=== PATIENT | male | born 1940 | race Caucasian/White ===

== ENCOUNTER 2017-05-21 07:48 | Outpatient (CLI) | payer MEDICARE ==
[~2017-05-21] VITALS: Ht 167.6 cm; Wt 90.9 kg
--- NOTE | ~2017-05-21 | OP ---
PATIENT NAME: GLADIS FLORES MEDICAL RECORD: [id number] :40 LOCATION:D.CAT ADMISSION DATE: SURGEON: VALORIE RGAY MD DATE OF OPERATION: 05/21/2017 DATE OF SERVICE: 05/21/2017 PROCEDURES: 1. PTCA stent of left main/LAD. 2. Intravascular ultrasound of left main and LAD. 3. Left heart catheterization. 4. Selective coronary angiography. 5. Left ventriculogram. INDICATION: Angina and coronary artery disease. PROCEDURE IN DETAIL: After informed consent was obtained and after detailed explanation of risks, benefits as well as alternative therapies, the patient elected to proceed with angiogram and angioplasty. The right femoral area had a preexisting sheath from aortofemoral runoff. All catheters exchanged through this sheath. FINDINGS: Left ventriculogram was performed in standard 30-degree FLETCHER view, reveals global hypokinesis throughout all segments. Overall ejection fraction 35%. SELECTIVE CORONARY ANGIOGRAPHY: 1. Left main has a greater than 80% stenosis confirmed by intravascular ultrasound. 2. Left anterior descending in the proximal aspect has greater than 80% stenosis confirmed by intravascular ultrasound, otherwise with moderate irregularities. 3. Left circumflex is moderate diffusely diseased, but no discrete flow-limiting stenosis. 4. Right coronary artery is totally occluded at the ostium. Distal right coronary artery fills via left to right collaterals and appears to be diffusely diseased and small. PTCA stent of the left main and LAD: The stent used covering both the left main and LAD was a 3.0 x 38 mm Oynx. Result was 0% residual stenosis. OVERALL IMPRESSION: Successful percutaneous transluminal coronary angioplasty stent of the left main and LAD, both going from 80% initial stenosis to 0% residual. TRANSINT:[id number] Voice Confirmation ID: [id number] DOCUMENT ID: [id number] OPERATIVE REPORT [id number] GLADIS FLORES VALORIE GRAY MD at 1025 CC: [id number] DICTATION DATE: 05/21/17 1044 [employer] PRICING CONSULTANT: 05/21/17 1341 DEP CLI 05/21/17 [place] [address]
--- NOTE | ~2017-05-21 | HP ---
PATIENT: GLADIS FLORES MEDICAL RECORD: [id number] ACCOUNT: [id number] LOCATION:JENSEN : 40 ADMISSION DATE: 05/21/17 HISTORY AND PHYSICAL EXAMINATION DIAGNOSES: 1. Angina. 2. Claudication. 3. Coronary artery disease. 4. Peripheral vascular disease. 5. Diabetes. 6. Hyperlipidemia. HISTORY OF PRESENT ILLNESS: This is a gentleman who presents with anginal symptomatology as well as claudication symptomatology. He underwent nuclear stress testing revealing significant reversible ischemia. He does have a past history of coronary artery disease, peripheral stenting as well. PHYSICAL EXAMINATION: GENERAL APPEARANCE: Well-nourished, well-developed, appears stated age. Level of distress, comfortable. PSYCHIATRIC: Mental status, alert, normal affect. Orientation, oriented to time, place and person. EYES: Lids and conjunctiva, noninjected. No discharge, no pallor. ENT: Lips, teeth, gums, normal dentition. Oropharynx, no cyanosis, no pallor. NECK: Carotid arteries, bilateral normal upstroke, no bruits, no thrills. JUGULAR VEINS: No jugular venous pressure or distention. CERVICAL LYMPH NODES: Nontender, nonenlarged. THYROID: Not enlarged. Nontender. No nodules. LUNGS: Respiratory effort, unlabored. CHEST: Normal curvature. No thoracic deformity. No chest wall tenderness. Percussion, resonant. Auscultation, clear. No wheezes, no rales, no rhonchi. CARDIOVASCULAR: Precordial exam, nondisplaced. No heaves or pericardial thrills. Rate and rhythm, regular. Heart sounds, normal S1, normal S2. No S3, no gallop, no rub. Systolic murmur, not heard. Diastolic murmur, not heard. EXTREMITIES: No cyanosis, no edema. Peripheral pulses, full and equal in all extremities, except as noted. No bruits appreciated. ABDOMEN: Soft, nondistended. Normal aorta. No bruit. Nontender. No masses. Liver, nontender, no hepatomegaly. Spleen, nontender, no splenomegaly. MUSCULOSKELETAL: No joint tenderness. No joint swelling. No erythema. NEUROLOGICAL: Normal gait, normal strength, normal tone. SKIN: Warm and dry. REVIEW OF SYSTEMS: The patient reports easy bruising but reports no swollen glands. The patient reports no fever, no night sweats, no significant weight gain, no significant weight loss. No significant exercise tolerance. The patient reports no dry eyes, no irritation, no vision change. Patient reports no difficulty hearing and no ear pain. Patient reports no frequent nose bleeds or nose and sinus problems. Patient reports on arm pain on exertion. No shortness of breath while lying down. No history of heart murmur. Patient reports no cough, no wheezing or coughing up blood. Patient reports no abdominal pain, no vomiting. Normal appetite. No diarrhea and not vomiting blood. No nausea and no constipation. Patient reports no incontinence. No difficulty urinating. No hematuria. No increased frequency. Patient reports no muscle aches. No weakness, no arthralgias, no back pain. No swelling of the HISTORY AND PHYSICAL [id number] SANDRAGLADIS Daija extremities. Patient reports no abnormal mole, no jaundice, no rashes. Reports no loss of consciousness. No weakness and no numbness. No seizures, dizziness, or headaches. The patient reports no depression, no sleep disturbance, feeling safe in a relationship and no alcohol abuse. Patient reports on fatigue. Reports no runny nose or sinus pressure. No itching, no hives, and no frequent sneezing. OVERALL IMPRESSION: Anginal symptomatology, abnormal nuclear stress test, claudication symptomatology in a patient with a past history of coronary artery disease and peripheral vascular disease. We will proceed with coronary angiography as well as aortofemoral runoff. Further care depends upon the findings of the angiography. TRANSINT:[id number] Voice Confirmation ID: [id number] DOCUMENT ID: [id number] VALORIE GRAY MD at 1025 CC: [id number] DICTATION DATE: 05/21/17957 JEWEL HOLE ROUGH OPENER: 05/21/17 1026 DEP CLI 05/21/17 [place] [id number]
--- NOTE | ~2017-05-21 | HEMODYNAMI ---
PATIENT:GLADIS FLORES MEDICAL RECORD: [id number] : 40 LOCATION:DAURY ADMISSION DATE: 05/21/17 Generatedon:05/21/201710:42 Patient name: GLADIS FLORES Patient #: [id number] SSN: : 1940 Date of study: 05/21/2017 Page: Of Hemodynamic Procedure Report Patient Data Patient Demographics Procedure consent was obtained First Name: GLADIS Gender: Male Last Name: SANDRA : 1940 [facility] Initial: G Age: 76 year(s) Patient #: [id number] Race: Unknown Additional ID: [id number] Contact details [address]: [address] [place] [address] State: [place] City: [place] Zip code: [address] Past Medical History Allergies: No known allergies Admission Admission Data Admission Date: 05/21/2017 Admission Time: 7:48 Lab Results Lab Result Date: 05/21/2017 Lab Result Time: 0:00 Biochemistry Name Units Result Min Max BUN mg/dl 27 --(----)-* 7 18 Creatinine mg/dl 1.7 --(----)-* 0.6 1.3 CBC Name Units Result Min Max Hemoglobin g/dl 14.6 --(-*--)-- 13.5 17.5 Procedure Procedure Types Cath Procedure Diagnostic Procedure [facility] w/Coronaries FFR/IVUS Intra-Coronary IVUS Initial PCI Procedure Coronary Stent Coronary Stent Initial Miscellaneous Procedures Moderate Sedation up to 30 minutes Peripheral Cath Diagnostic Procedure Cath Peripheral Geltl-Ttcsulz-Zyg-Off Procedure Description Procedure Date Procedure Date: 05/21/2017 Procedure Start Time: 10:17 Procedure End Time: 10:42 Procedure Staff Name Function Gordon Willard MD Performing Physician Gege Gonzalez RT Monitor Mathew Mcghee RT Scrub Rylan Constantino RN Nurse Foreign Albarran RN Dyno Technician Procedure Data Cath Procedure Fluoroscopy Diagnostic fluoroscopy Total fluoroscopy Time: 4.8 time: 4.8 min min Diagnostic fluoroscopy Total fluoroscopy dose: dose: 1046 mGy 1046 mGy Contrast Material Contrast Material Type Amount (ml) Isovue 300 166 Entry Location Entry Primary Successful Side Size Upsize Upsize Entry Closure Succes sful Closure Location (Fr) 1 (Fr) 2 (Fr) Remarks Device Remarks Femoral Right 5 Fr Exoseal artery Estimated blood loss: 10 ml Diagnostic catheters Device Type Used For End Catheter Placement MULTIPACK Pigtail 5 Fr Procedure catheter MULTIPACK JL 4.0 5Fr Procedure catheter MULTIPACK 3DRC 5Fr Procedure catheter Procedure Complications No complications Procedure Medications Medication Administration Route Dosage 0.9% NaCl I.V. 100 ml/hr Oxygen NC 2 l/min Heparin Flush Bag added to field 2 bags (1000units/500ml NS) Lidocaine 2% added to field 20 Versed I.V. 1 mg Fentanyl I.V. 50 mcg Versed I.V. 0.5 mg Fentanyl I.V. 25 mcg Heparin Bolus I.V. 4000 units Versed I.V. 0.5 mg Fentanyl I.V. 25 mcg Hemodynamics Rest HGB: 14.6 (g/dl) Heart Rate: 83 (bpm) Snapshots Pre Cath Intra NCS Post Cath Vital Signs Time Heart Resp SPO2 etCO2 NIBP (mmHg) Rhythm Pain Sedation Rate (ipm) (%) (mmHg) Status Level (bpm) 10:09:16 83 16 99 41 158/74(119) NSR 0 (11) 10(A) , No pain 10:14:03 83 16 98 41.8 154/71(107) NSR 0 (11) 10(A) , No pain 10:18:45 84 15 98 0 145/74(98) NSR 0 (11) 10(A) , No pain 10:23:24 90 14 96 39.5 128/65(103) NSR 0 (11) 9(A) , No pain 10:28:02 88 14 97 7.6 132/65(108) NSR 0 (11) 9(A) , No pain 10:32:43 84 15 96 40.2 105/62(84) NSR 0 (11) 9(A) , No pain 10:37:17 94 13 97 11.4 125/73(120) NSR 0 (11) 9(A) , No pain 10:41:52 89 13 96 9.1 121/70(94) NSR 0 (11) 9(A) , No pain Medications Time Medication Route Dose Verified Delivered Reason Notes Effectiveness by by 10:07:32 0.9% NaCl I.V. 100 Rylan Rylan Per physician ml/hr Dougie Constantino RN RN 10:07:42 Oxygen NC 2 Rylan Rylan Per physician l/min Dougie Constantino RN RN 10:07:52 Heparin Flush added 2 Rylan Rylan used for Bag to bags Dougie Constantino procedure (1000units/500ml field RN RN NS) 10:08:05 Lidocaine 2% added 20ml Rylan Rylan for local to vial Lorkatty Constantino anesthetic field RN RN 10:12:04 Versed I.V. 1 mg Rylan Rylan for sedation Dougie Constantino RN RN 10:12:26 Fentanyl I.V. 50 Rylan Rylan for sedation mcg Dougie Constantino RN RN 10:18:04 Versed I.V. 0.5 Rylan Rylan for sedation mg Dougie Constantino RN RN 10:18:12 Fentanyl I.V. 25 Rylan Rylan for sedation mcg Dougie Constantino RN RN 10:29:48 Heparin Bolus I.V. 4000 Rylan Rylan for units Dougie Constantino anticoagulation RN RN 10:30:57 Versed I.V. 0.5 Rylan Rylan for sedation mg Dougie Constantino RN RN 10:31:03 Fentanyl I.V. 25 Rylan Rylan for sedation mcg Dougie Constantino RN restoration technician Log Time Note 9:43:02 Foreign Albarran RN sent for patient. Start room use. 9:43:03 Time tracking: Regular hours 9:43:08 Plan of Care:Hemodynamics will remain stable., Cardiac rhythm will remain stable., Comfort level will be maintained., Respiratory function will remain adequate., Patient/ family verbilizes understanding of procedure., Procedure tolerated without complication., Recovers from procedure without complications.. 9:54:28 Lab Result : BUN 27 mg/dl 9:54:28 Lab Result : Creatinine 1.7 mg/dl 9:54:28 Lab Result : Hemoglobin 14.6 g/dl 9:58:01 Patient received from Pre/Post Procedure Room to [facility] 1 Alert and oriented. Tansferred to table in Supine position. 9:58:02 Warm blankets applied, and boone hugger turned on for patient comfort. 9:58:03 Correct patient and procedure confirmed by team. 9:58:04 Signed procedure consent form obtained from patient. 9:58:05 ECG and BP/O2 sat monitors applied to patient. 10:07:32 0.9% NaCl 100 ml/hr I.V. was administered by Rylan Constantino RN; Per physician; 10:07:42 Oxygen 2 l/min NC was administered by Rylan Constantino RN; Per physician; 10:07:52 Heparin Flush Bag (1000units/500ml NS) 2 bags added to field was administered by Rylan Constantino RN; used for procedure; 10:08:05 Lidocaine 2% 20ml vial added to field was administered by Rylan Constantino RN; for local anesthetic; 10:08:16 Vital chart was started 10:09:57 Baseline sample Acquired. 10:10:02 Rhythm: sinus rhythm 10:10:03 Full Disclosure recording started 10:10:07 H&P Date Dictated: 05/21/2017 Within 30 days and on chart., H&P Addendum completed by physician on day of procedure. (MUST COMPLETE FOR ALL OUTPATIENTS). 10:10:07 Pre-procedure instructions explained to patient. 10:10:09 Pre-op teaching completed and patient verbalized understanding. 10:10:11 Family in patients room. 10:10:13 Patient NPO since Midnight. 10:10:20 Patient allergic to No known allergies 10:10:22 Is the patient allergic to Iodine/contrast media? No. 10:10:25 Is patient on blood thinner?No 10:10:27 ACC The patient was administered the following blood thiners within the last 24 hours: ACCPlavix 10:10:31 Patient diabetic? Yes. 10:10:32 If diabetic: On Metformin? No 10:10:37 Previous problem with sedation/anesthesia? No ? 10:10:38 Snore? Yes 10:10:39 Sleep apnea? No 10:10:40 Deviated septum? No 10:10:41 Opens mouth fully? Yes 10:10:42 Sticks out tongue? Yes 10:10:44 Airway obstruction? No ? 10:10:49 Dentures? Yes IN TIGHT 10:10:53 Pre procedure: right dorsailis pedis pulse 2+ Normal; easily identifiable; not easily obliterated 10:10:58 Patient pain scale 0/10 ?. 10:11:11 IV patent on arrival in left forearm with 0.9% NaCl at O. 10:11:14 Lab results completed and on chart. 10:11:17 Bilateral groins area was prepped with chlora-prep and draped in sterile fashion 10:11:18 Alarms reviewed by R. N. 10:11:18 Sharps counted by scrub and verified by R.N. 10:11:19 --------ALL STOP TIME OUT------ 10:11:20 Final Timeout: patient, procedure, and site verified with staff and physician. All members of the team are in agreement. 10:11:21 Bilateral groins site verified by team. 10:11:25 Physical assessment completed. ASA score P 2 - A patient with mild systemic disease as per Gordon Willard MD. 10:11:28 Sedation plan: IV Moderate Sedation Medication:Versed, Fentanyl 10:12:04 Versed 1 mg I.V. was administered by Rylan Constantino RN; for sedation; 10:12:26 Fentanyl 50 mcg I.V. was administered by Rylan Constantino RN; for sedation; 10:13:17 Procedure type changed to Cath procedure, Diagnostic procedure, LHC, LHC w/Coronaries, FFR/IVUS, Intra-Coronary IVUS Initial, PCI procedure, Coronary Stent, Coronary Stent Initial, Miscellaneous Procedures, Moderate Sedation up to 30 minutes, Peripheral Cath Diagnostic Procedure, Cath Peripheral, Mmhse-Ebmzlhg-Rmn-Off 10:13:23 Use device set Femoral Dx 10:13:24 ACIST Syringe (36668) opened to sterile field. 10:13:24 Bag Decanter (2002) opened to sterile field. 10:13:26 ACIST Hand Control (84130) opened to sterile field. 10:13:26 ACIST Manifold (78219) opened to sterile field. 10:13:27 Tegaderm 4 x 4 (1626W) opened to sterile field. 10:13:29 PERCUTANEOUS ENTRY 19GA needle opened to sterile field. 10:13:31 Medline Cath Pack (LUUV84823) opened to sterile field. 10:13:33 SHEATH 5FR Cyril (PZN696) opened to sterile field. 10:13:36 DIAGNOSTIC WIRE .035 260cm J wire (322309) opened to sterile field. 10:13:37 DIAGNOSTIC Multipack 5Fr catheter set (OY7294) opened to sterile field. 10:15:27 Zero performed for pressure channel P1 10:15:30 Zero performed for pressure channel P1 10:15:41 Zero performed for pressure channel P1 10:17:01 Procedure started. 10:17:08 Local anesthetic to right femoral artery with Lidocaine 2% by Gordon Willard MD.INITIAL ACCESS ONLY 10:18:04 Versed 0.5 mg I.V. was administered by Rylan Constantino RN; for sedation; 10:18:12 Fentanyl 25 mcg I.V. was administered by Rylan Constantino RN; for sedation; 10:19:00 A 5 Fr sheath was inserted into the Right Femoral artery 10:19:42 A MULTIPACK Pigtail 5 Fr catheter was advanced over the wire and used for Procedure. 10:19:46 LV gram done using FLETCHER 10:19:49 Injector settings: Ml/sec: 10, Volume: 20, 10:20:50 EF : 35 % 10:21:46 Left leg runoff performed. 10:21:54 Right leg runoff performed. 10:22:28 Catheter removed. 10:23:04 A MULTIPACK JL 4.0 5Fr catheter was advanced over the wire and used for Procedure. 10:23:44 LCA angiography performed. 10:24:33 Catheter removed. 10:24:47 A MULTIPACK 3DRC 5Fr catheter was advanced over the wire and used for Procedure. 10:25:42 Catheter removed. 10:25:54 RIGHT CORONARY TOTAL OCCLUSION 10:27:02 INFLATOR Merit BasixCompak (AT5196) opened to sterile field. 10:27:07 SHEATH 6FR Cyril (LUI562) opened to sterile field. 10:27:48 [place] IVUS Catheter (53344W) opened to sterile field. 10:28:25 CHOICE PT Extra Support 182cm wire ([id number]) opened to sterile field. 10:29:20 6 Fr XBLAD SH 3.5 guide catheter was inserted over the wire 10:29:48 Heparin Bolus 4000 units I.V. was administered by Rylan Constantino RN; for anticoagulation; 10:29:52 GUIDE 6FR XBLAD 3.5 SH catheter (51358645) opened to sterile field. 10:30:07 CHOICE PT wire advanced. 10:30:11 Wire advanced across lesion. 10:30:31 GUIDE 6FR XBLAD 4.0 catheter ([id number]) opened to sterile field. 10:30:38 IVUS catheter advanced over wire. 10:30:57 Versed 0.5 mg I.V. was administered by Rylan Constantino RN; for sedation; 10:31:03 Fentanyl 25 mcg I.V. was administered by Rylan Constantino RN; for sedation; 10:32:04 IVUS pass to LAD lesion performed. 10:32:19 IVUS catheter removed over wire. 10:35:00 Inflation Number: 1 A SARA RX 3.0 x 38 stent ([id number]) was prepped and advanced across the Prox LAD. The stent was deployed at 17 VAUGHN for 0:10 (min:sec). 10:35:19 Stent catheter was removed intact over wire. 10:35:20 Wire removed. 10:35:21 Guide catheter removed. 10:35:31 EXOSEAL 6Fr (EX600) opened to sterile field. 10:35:41 Quick Combo opened to sterile field. 10:35:54 Sheath removed intact; hemostasis achieved with Exoseal to the Right Femoral artery. 10:35:57 Procedure ended.(Physican Out) 10:36:38 Fluoroscopy time 04.80 minutes. 10:36:45 Fluoroscopy dose: 1046 mGy 10:36:45 Flurop Dose total: 1046 10:36:49 Contrast amount:Isovue 300 166ml. 10:36:51 Sharps counted by scrub and verified by R.N. 10:36:52 Insertion/operative site no bleeding no hematoma. 10:36:54 Post-op/insertion site Right Femoral artery dressed using a 4 x 4 and Tegaderm. 10:36:59 Post right femoral artery:stable, soft, clean and dry 10:40:18 Post procedure: right dorsailis pedis pulse 2+ Normal; easily identifiable; not easily obliterated. 10:40:20 Post-procedure physical assessment completed. ASA score P 2 - A patient with mild systemic disease as per Gordon Willard MD. 10:40:23 Post procedure rhythm: unchanged. 10:40:25 Estimated blood loss: 10 ml 10:40:28 Post procedure instruction explained to patient.Patient verbalizes understanding. 10:40:31 Patient needs reinforcement of post procedure teaching. 10:42:14 Procedure and supply charges have been captured, reviewed, submitted and are correct. 10:42:18 Procedure Complication : No complications 10:42:20 Vital chart was stopped 10:42:20 See physician's report for complete and final results. 10:42:23 Report given to Pre/Post Procedure Room. 10:42:27 Patient transfered to Pre/Post Procedure Room with Bed. 10:42:29 Procedure ended. 10:42:29 Full Disclosure recording stopped 10:42:34 End room use (Document Last) Intervention Summary Intervention Notes Time ActionType Lesion and Equipment Used Action# Pressure Duration Attributes 10:35:[address] Place stent Prox LAD SARA RX 3.0 x 1 17 00:10 38 stent ([id number]) Device Usage Item Name Manufacture Quantity Catalog Number Hospital Part Current M inimal Lot# / Charge Number Stock Stock Serial# Code ACIST Syringe Acist 1 73952 797082 155358 305998 2 0 (15887) Medical Systems Inc Bag Decanter Microtek 1 2002S 191311 60499 170763 5 (2002S) Medical Inc. ACIST Hand Acist 1 75357 784637 561658 937239 5 Control Medical (40699) Systems Inc ACIST Manifold Acist 1 22818 788259 291300 251005 5 (45786) Medical Systems Inc Tegaderm 4 x 4 3M 1 1626W 229097 734609 703451 5 (1626W) PERCUTANEOUS [place] Medical 1 [id number] 084402 634906 5 ENTRY 19GA needle Medline Cath Cardinal 1 [id number] 776241 01915 403005 5 Pack Health ([id number]) SHEATH 5FR Terumo 1 VCP860 769413 322224 396823 4 0 Cyril (ECE090) DIAGNOSTIC St Sahil 1 310908 756959 880263 800007 3 0 WIRE .035 260cm J wire (094742) DIAGNOSTIC Cardinal 1 PU8297 139433 41667 386161 3 0 Multipack 5Fr Health catheter set (ET8925) MULTIPACK Cardinal 1 765486 5 Pigtail 5 Fr Health catheter MULTIPACK JL Cardinal 1 496112 5 4.0 5Fr Health catheter MULTIPACK 3DRC Cardinal 1 931564 5 5Fr catheter Health INFLATOR Merit Merit 1 QE3852 359961 140268 976857 1 5 [employer] Leaguesme3LM Medical (IB8284) SHEATH 6FR Terumo 1 PQV102 343417 264005 662423 4 0 Cyril (YTA333) [place] 1 [id number] 573294 077118 688035 8 [place] Eag[place] IVUS Catheter (15902T) CHOICE PT Gordon 1 [id number] 409737 485332 577953 5 Extra Support Scientific 182cm wire ([id number]) GUIDE 6FR Cardinal 1 [id number] 645734 991509 733897 3 XBLAD 3.5 Health catheter (77095233) GUIDE 6FR Cardinal 1 [id number] 128281 048244 256751 3 XBLAD 4.0 Health catheter (51751577) SARA RX 3.0 x Medtronic 1 [id number] 443054 3525361 496923 5 [id number] 38 stent ([id number]) EXOSEAL 6Fr Cardinal 1 EX600 984643 313124 877040 1 0 (EX600) [employer] GluMetrics Systems 1 [id number] 771711 116307 752376 5 Signature Audit [place] Stage Time Signature Unsigned Intra-Procedure 05/21/2017 Gege Gonzalez 10:42:48 AM RT(R) Signatures Monitor : Gege Gonzalez Signature : RT Date : Time : [facility] [address] [place] [address]
--- NOTE | ~2017-05-21 | OP ---
PATIENT NAME: GLADIS FLORES MEDICAL RECORD: [id number] :40 LOCATION:D.CAT ADMISSION DATE: SURGEON: VALORIE GRAY MD DATE OF OPERATION: 05/21/2017 DATE OF SERVICE: 05/21/2017 PROCEDURES: 1. Aortofemoral runoff. 2. Abdominal aortography. INDICATION: Claudication and peripheral vascular disease. PROCEDURE IN DETAIL: After informed consent was obtained and after detailed explanation of risks, benefits as well as alternative therapies, the patient elected to proceed with angiogram and aortofemoral runoff. The right femoral area was prepped and draped in normal sterile fashion. Right femoral artery was cannulated via modified Seldinger technique with placement of 6-German sheath. All catheters exchanged through this sheath. FINDINGS: Abdominal aortography was performed. The catheter was pulled down for aortofemoral runoff. Abdominal aortography reveals diffuse disease of the abdominal aorta, but no flow-limiting stenosis, no renal artery stenosis, no dissection. RIGHT LEG: A. Iliac: The common internal and external iliacs have moderate irregularities, but no flow-limiting stenosis. B. Femoral system: The common and deep femoral are widely patent. Superficial femoral has multiple areas of greater than 70% stenosis. C. Popliteal has a 90% stenosis in the mid vessel. Infrapopliteal vessels are patent, although diffusely diseased, but 2-vessel runoff to the foot through the peroneal and posterior tibial. LEFT LEG: A. Iliac: The common internal and external iliacs have moderate irregularities, but no flow-limiting stenosis. B. Femoral system: The common, superficial, and deep femoral have moderate irregularities, but no flow-limiting stenosis. C. Popliteal has a 90% to 95% stenosis. After this, the infrapopliteal vessels are patent giving diffusely diseased, but 3-vessel runoff to the foot. OVERALL IMPRESSION: Significant disease of the popliteal arteries bilaterally as well as right SFA disease, all amenable to transcatheter revascularization. TRANSINT:[id number] Voice Confirmation ID: [id number] DOCUMENT ID: [id number] OPERATIVE REPORT [id number] GLADIS FLORES VALORIE GRAY MD at 1025 CC: [id number] DICTATION DATE: 05/21/17 1044 LOGGER DRIVING HORSES: 05/21/17 1342 DEP CLI 05/21/17 [facility] [address] [place] [address]
[2017-05-21] MEDS ORDERED: LANTUS INSULIN10 ML SUBD (08:21)
[2017-05-21] MEDS ORDERED: VICTOZA0.6 MG/0.1 SQ (08:22)
[2017-05-21] MEDS ORDERED: HUMALOG 30100 UNITS/ SC (08:22)
[2017-05-21] MEDS ORDERED: ZYLOPRIM100 MG PO (08:23)
[2017-05-21] MEDS ORDERED: OMEPRAZOLE20 M1 PO (08:23)
[2017-05-21] MEDS ORDERED: ULTRAM50 MG PO (08:24)
[2017-05-21] MEDS ORDERED: AMITRIPTYLINE H50 MG PO (08:25)
[2017-05-21] MEDS ORDERED: FLOMAX0.4 MG PO (08:26)
[2017-05-21] MEDS ORDERED: LIPITOR40 MG PO (08:26)
[2017-05-21] MEDS ORDERED: FUROSEMIDE20 MG PO (08:26)
[2017-05-21] MEDS ORDERED: PLAVIX75 MG PO (08:27)
[2017-05-21] MEDS ORDERED: BAYER CHEWABLE81 MG PO (08:28)
[2017-05-21] MEDS ORDERED: NEURONTIN 400400 MG PO (08:28)
[2017-05-21] MEDS ORDERED: CRANBERRY 400 M1 TA1 PO (08:29)
[2017-05-21 08:40] LABS: BASOPHILS 0.1 % (0-2); EOSINOPHILS 1.2 % (0-7); HEMOGLOBIN 14.6 g/dL (13.5-17.5); IMMATURE GRANULOCYTES 0.4 % (0-5); LYMPHOCYTES 15.4 % (15-50); MCH 31.7 pg (26.0-34.0); MCHC 33.2 g/dL (31.0-37.0); MCV 95.7 fL (80.0-100.0); MEAN PLATELET VOLUME 10.2 fL (7.4-10.4); MONOCYTES 8.8 % (2-11); NEUTROPHILS 74.1 % (40-80); PLATELET COUNT 215 10x3/uL (130-400); RDW 14.6 % (11.5-14.5); WBC 13.5 10x3/uL (4.8-10.8)
[2017-05-21 08:44] VITALS: BP 137/80; Ht 167.6 cm; Wt 90.9 kg
[2017-05-21 08:49] LABS: ANION GAP 13.4 mmol/L (8-16); CALCIUM 8.5 mg/dL (8.5-10.1); CARBON DIOXIDE 27.7 mmol/L (21.0-32.0); CREATININE - SERUM 1.7 mg/dL (0.6-1.3); POTASSIUM - SERUM 4.1 mmol/L (3.5-5.1)
== END 2017-05-21 14:42 | disposition home or self-care (01) ==
LOC: D.CATH 07:48
PROVIDERS: Internal Medicine Interventional Cardiology
DX: I25.119 Atherosclerotic heart disease of native coronary artery with unspecified angina pectoris (principal); I70.219 Atherosclerosis of native arteries of extremities with intermittent claudication, unspecified extremity; E11.9 Type 2 diabetes mellitus without complications; E78.5 Hyperlipidemia, unspecified; Z01.812 Encounter for preprocedural laboratory examination; R94.30 Abnormal result of cardiovascular function study, unspecified
CPT/HCPCS: 93458; 92978; 92979; C9600

== ENCOUNTER 2017-05-26 08:00 | Outpatient (CLI) | payer MEDICARE ==
[~2017-05-26] VITALS: Ht 167.6 cm; Wt 90.9 kg
--- NOTE | ~2017-05-26 | HEMODYNAMI ---
PATIENT:GLADIS FLORES MEDICAL RECORD: [id number] : 40 LOCATION:[facility] ADMISSION DATE: 05/26/17 Generatedon:05/26/201711:21 Patient name: GLADIS FLORES Patient #: [id number] SSN: : 1940 Date of study: 05/26/2017 Page: Of Hemodynamic Procedure Report Patient Data Patient Demographics Procedure consent was obtained First Name: GLADIS Gender: Male Last Name: SANDRA : 1940 [facility] Initial: G Age: 76 year(s) Patient #: [id number] Race: Unknown Additional ID: [id number] Contact details [address]: [address] [place] [address] State: [place] City: [place] Zip code: [address] Past Medical History Allergies: No known allergies Admission Admission Data Admission Date: 05/26/2017 Admission Time: 8:00 Admit Source: Other Lab Results Lab Result Date: 05/21/2017 Lab Result Time: 0:00 Biochemistry Name Units Result Min Max BUN mg/dl 27 --(----)-* 7 18 Creatinine mg/dl 1.7 --(----)-* 0.6 1.3 CBC Name Units Result Min Max Hemoglobin g/dl 14.6 --(-*--)-- 13.5 17.5 Procedure Procedure Types Cath Procedure Miscellaneous Procedures Moderate Sedation up to 15 minutes Peripheral Cath Diagnostic Procedure Abd/Extremity Extremities Left Lower Ext Arterio Peripheral vascular Intervention Stent Stent-Fem/Popw/plasty Procedure Description Procedure Date Procedure Date: 05/26/2017 Procedure Start Time: 10:57 Procedure End Time: 11:20 Procedure Staff Name Function Gordon Willard MD Performing Physician Katerina Marinelli RT Monitor Marilee Ramírez RT Scrub Lina Stark RN Nurse Procedure Data Cath Procedure Fluoroscopy Diagnostic fluoroscopy Total fluoroscopy Time: 5 time: 5 min min Diagnostic fluoroscopy Total fluoroscopy dose: 126 dose: 126 mGy mGy Contrast Material Contrast Material Type Amount (ml) Isovue 300 66 Entry Location Entry Primary Successful Side Size Upsize Upsize Entry Closure Succes sful Closure Location (Fr) 1 (Fr) 2 (Fr) Remarks Device Remarks Femoral Right 6 Fr Exoseal artery Short Estimated blood loss: 10 ml Diagnostic catheters Device Type Used For End Catheter Placement DIAGNOSTIC UF 5Fr Procedure catheter ([id number]) Procedure Complications No complications Procedure Medications Medication Administration Route Dosage 0.9% NaCl I.V. 100 ml/hr Oxygen NC 2 l/min Lidocaine 2% added to field 20 Heparin Flush Bag added to field 2 bags (1000units/500ml NS) Fentanyl I.V. 50 mcg Versed I.V. 1 mg Fentanyl I.V. 50 mcg Versed I.V. 1 mg Heparin Bolus I.V. 4000 units Hemodynamics Rest HGB: 14.6 (g/dl) Heart Rate: 80 (bpm) Snapshots Pre Cath Intra NCS Post Cath Vital Signs Time Heart Resp SPO2 etCO2 NIBP (mmHg) Rhythm Pain Sedation Rate (ipm) (%) (mmHg) Status Level (bpm) 10:43:58 84 21 97 0 169/81(123) NSR 0 (11) 10(A) , No pain 10:48:18 81 18 99 34.8 159/83(121) NSR 0 (11) 10(A) , No pain 10:52:36 77 17 98 0 144/70(110) NSR 0 (11) 10(A) , No pain 10:56:47 75 14 98 28.8 130/68(117) NSR 0 (11) 10(A) , No pain 11:01:00 78 14 98 31.8 146/72(100) NSR 0 (11) 9(A) , No pain 11:05:12 80 14 98 34.8 126/61(92) NSR 0 (11) 9(A) , No pain 11:09:28 82 15 97 34 121/60(92) NSR 0 (11) 10(A) , No pain 11:13:40 80 14 98 1.5 130/66(101) NSR 0 (11) 10(A) , No pain 11:17:52 79 15 98 16.6 121/61(98) NSR 0 (11) 10(A) , No pain Medications Time Medication Route Dose Verified Delivered Reason Not es Effectiveness by by 10:35:22 0.9% NaCl I.V. 100ml/hr Gordon Mills used for Sudheer Stark RN procedure 10:35:30 Oxygen NC 2 l/min Gordon Mills Per physician Sudheer Stark RN 10:35:38 Lidocaine 2% added 20ml Gordon Marrerorey for local to vial Sudheer Willard MD anesthetic field 10:35:44 Heparin Flush added 2 bags Gordonashish Leyva used for Bag to Sudheer Willard MD procedure (1000units/500ml field NS) 10:54:16 Fentanyl I.V. 50 mcg Gordon Mills for sedation Sudheer Stark RN 10:54:26 Versed I.V. 1 mg Gordon Mills for anxiety Sudheer Stark RN 10:55:51 Fentanyl I.V. 50 mcg Gordon Donaldfany for sedation Sudheer Stark RN 10:55:55 Heparin Bolus I.V. 4000 Gordon Donaldfany for mundo ified units Sudheer Stark RN anticoagulation by 10:55:56 Versed I.V. 1 mg Gordon Mills for anxiety Sudheer Stark RN Procedure Log Time Note 10:34:05 Admit Source: Other 10:34:20 Procedure type changed to Cath procedure, Miscellaneous Procedures, Moderate Sedation up to 15 minutes, Peripheral Cath Diagnostic Procedure, Abd/Extremity, Extremities, Left Lower Ext Arterio, Peripheral vascular Intervention, Stent, Stent-Fem/Popw/plasty 10:34:44 Diagnostic Cath status Elective 10:34:46 Marilee Ramírez RT(R) sent for patient. Start room use. 10:34:47 Time tracking: Regular hours 10:34:53 Plan of Care:Hemodynamics will remain stable., Cardiac rhythm will remain stable., Comfort level will be maintained., Respiratory function will remain adequate., Patient/ family verbilizes understanding of procedure., Procedure tolerated without complication., Recovers from procedure without complications.. 10:34:58 Patient received from Pre/Post Procedure Room to CCL 2 Alert and oriented. Tansferred to table in Supine position. 10:35:22 0.9% NaCl 100ml/hr I.V. was administered by Lina Stark RN; used for procedure; 10:35:30 Oxygen 2 l/min NC was administered by Lina Stark RN; Per physician; 10:35:38 Lidocaine 2% 20ml vial added to field was administered by Gordon Willard MD; for local anesthetic; 10:35:44 Heparin Flush Bag (1000units/500ml NS) 2 bags added to field was administered by Gordon Willard MD; used for procedure; 10:38:17 Warm blankets applied, and boone hugger turned on for patient comfort. 10:38:18 Correct patient and procedure confirmed by team. 10:38:20 Signed procedure consent form obtained from patient. 10:42:42 ECG and BP/O2 sat monitors applied to patient. 10:42:43 Vital chart was started 10:42:45 Full Disclosure recording started 10:42:52 H&P Date Dictated: 05/26/2017 Within 30 days and on chart., H&P Addendum completed by physician on day of procedure. (MUST COMPLETE FOR ALL OUTPATIENTS). 10:42:54 Pre-procedure instructions explained to patient. 10:42:55 Pre-op teaching completed and patient verbalized understanding. 10:42:57 Family in patients room. 10:42:58 Patient NPO since Midnight. 10:43:01 Is the patient allergic to Iodine/contrast media? No. 10:43:02 Was the patient premedicated? No 10:43:03 Is patient on blood thinner?Yes 10:43:05 ACC The patient was administered the following blood thiners within the last 24 hours: ACCPlavix 10:43:08 Patient diabetic? Yes. 10:43:09 If diabetic: On Metformin? No 10:43:12 Previous problem with sedation/anesthesia? No ? 10:43:13 Snore? Yes 10:43:14 Sleep apnea? No 10:43:15 Deviated septum? No 10:43:16 Opens mouth fully? Yes 10:43:16 Sticks out tongue? Yes 10:43:18 Airway obstruction? No ? 10:43:20 Dentures? No ? 10:43:25 Pre procedure: right dorsailis pedis pulse Doppler 10:43:28 Pre procedure: left dorsailis pedis pulse Doppler 10:43:30 Patient pain scale 0/10 ?. 10:43:37 IV patent on arrival in left forearm with 0.9% NaCl at [facility]. 10:43:41 Lab results completed and on chart. 10:43:46 Bilateral groins area was prepped with chlora-prep and draped in sterile fashion 10:43:46 Alarms reviewed by R. N. 10:43:47 Sharps counted by scrub and verified by R.N. 10:48:34 Physician paged 10:48:46 Baseline sample Acquired. 10:48:51 Rhythm: sinus rhythm 10:49:01 Physician arrived 10:49:23 Use device set Femoral Dx 10:49:24 ACIST Syringe (80879) opened to sterile field. 10:49:25 Bag Decanter (2002S) opened to sterile field. 10:49:35 DIAGNOSTIC WIRE .035 260cm J wire ([id number]) opened to sterile field. 10:49:37 ACIST Hand Control (27969) opened to sterile field. 10:49:37 ACIST Manifold (78698) opened to sterile field. 10:49:39 Tegaderm 4 x 4 (1626W) opened to sterile field. 10:49:44 PERCUTANEOUS ENTRY 19GA needle opened to sterile field. 10:49:52 SHEATH 6FR [place] (EVP000) opened to sterile field. 10:50:15 INFLATOR Merit BasixCompak (PP9973) opened to sterile field. 10:51:39 SHEATH 6FR [place] (RSR01) opened to sterile field. 10:53:28 Zero performed for pressure channel P1 10:53:35 Zero performed for pressure channel P1 10:53:42 Zero performed for pressure channel P1 10:53:59 --------ALL STOP TIME OUT------ 10:54:00 Final Timeout: patient, procedure, and site verified with staff and physician. All members of the team are in agreement. 10:54:03 Bilateral groins site verified by team. 10:54:07 Physical assessment completed. ASA score P 2 - A patient with mild systemic disease as per Gordon Willard MD. 10:54:11 Sedation plan: IV Moderate Sedation Medication:Versed, Fentanyl 10:54:15 Zero performed for pressure channel P1 10:54:16 Fentanyl 50 mcg I.V. was administered by Lina Stark RN; for sedation; 10:54:26 Versed 1 mg I.V. was administered by Lina Stark RN; for anxiety; 10:55:51 Fentanyl 50 mcg I.V. was administered by Lina Stark RN; for sedation; :55:55 Heparin Bolus 4000 units I.V. was administered by Lina Stark RN; for anticoagulation; verified by 10:55:56 Versed 1 mg I.V. was administered by Lina Stark RN; for anxiety; 10:57:08 Procedure started. 10:57:22 Local anesthetic to right femoral artery with Lidocaine 2% by Gordon Willard MD.INITIAL ACCESS ONLY 10:57:33 A 6 Fr Short sheath was inserted into the Right Femoral artery 10:58:13 UF inserted to cross over to left femoral artery. 10:58:56 TORQUE DEVICE PLASTIC .038 ( TD01) opened to sterile field. 10:59:22 glide wire inserted to cross over the horn. 11:00:20 GLIDE WIRE ANGLE 260cm (QS0140) opened to sterile field. 11:00:48 A DIAGNOSTIC UF 5Fr catheter ([id number]) was advanced over the wire and used for Procedure.left leg run off 11:01:44 Wire removed. 11:01:49 Angiography was performed. 11:04:08 CHOICE PT Extra Support J 300cm guide wire ([id number]) opened to sterile field. 11:06:41 Saber 6x60 inserted and inflated to 13 for 10 sec in the left popliteal. 11:08:00 Inflation number: 1 A SABER 6.0 x 6 x 150 balloon ([id number]) was prepped and advanced across the Mid Popliteal, Left, then inflated to 13 VAUGHN for 0:10 (min:sec). 11:08:47 SMART 6 X 60 X 120 stent ([id number]) was deployed across Mid Popliteal, Left . 11:08:52 Saber 6x60 inserted and inflated to 13 for 10 sec in the left popliteal. 11:11:52 EXOSEAL 6Fr (EX600) opened to sterile field. 11:12:13 Sheath removed intact; hemostasis achieved with Exoseal to the Right Femoral artery. 11:12:17 Procedure ended.(Physican Out) 11:12:33 Fluoroscopy time 05.00 minutes. 11:12:38 Flurop Dose total: 126 11:12:38 Fluoroscopy dose: 126 mGy 11:12:41 Contrast amount:Isovue 300 66ml. 11:12:43 Sharps counted by scrub and verified by R.N. 11:12:56 Insertion/operative site no bleeding no hematoma. 11:13:07 Post-op/insertion site Right Femoral artery dressed using a 4 x 4 and Tegaderm. 11:13:18 Post Procedure Pulses reassessed and unchanged 11:13:35 Post-procedure physical assessment completed. ASA score P 2 - A patient with mild systemic disease as per Gordon Willard MD. 11:13:38 Post procedure rhythm: unchanged. 11:13:42 Estimated blood loss: 10 ml 11:13:45 Post procedure instruction explained to patient.Patient verbalizes understanding. 11:15:47 Procedure and supply charges have been captured, reviewed, submitted and are correct. 11:20:08 Procedure Complication : No complications 11:20:10 Vital chart was stopped 11:20:11 See physician's report for complete and final results. 11:20:22 Report given to Pre/Post Procedure Room. 11:20:26 Patient transfered to Pre/Post Procedure Room with Stretcher. 11:20:28 Procedure ended. 11:20:28 Full Disclosure recording stopped 11:20:33 End room use (Document Last) Intervention Summary Intervention Notes Time ActionType Lesion and Equipment Action# Pressure Duration Attributes Used 11:08:00 Inflate Mid SABER 6.0 x 1 13 00:10 balloon Popliteal, 6 x 150 Left balloon ([id number]) 11:08:47 Deploy self Mid SMART 6 X 1 expanding Popliteal, 60 X 120 stent Left stent ([id number]) Device Usage Item Name Manufacture Quantity Catalog Number Hospital Part Current [facility] Lot# / Charge Number Stock Stock Serial# Code ACIST Acist 1 54293 872770 406656 994626 20 Syringe Medical (73735) Systems Inc Bag Decanter Microtek 1 2001S 029917 81154 624673 5 () Medical Inc. DIAGNOSTIC St Sahil 1 018824 141017 558818 770559 30 WIRE .035 260cm J wire (216666) ACIST Hand Acist 1 89754 543082 047300 603953 5 Control Medical (33202) Systems Inc ACIST Acist 1 18475 716247 451733 736508 5 Manifold Medical (83752) Systems Inc Tegaderm 4 x 3M 1 1626W 276413 457156 617856 5 4 (1626W) PERCUTANEOUS Cook Medical 1 W69991 220711 762386 5 ENTRY 19GA needle SHEATH 6FR Terumo 1 OMH763 672486 911164 548552 40 [place] (JNY594) INFLATOR Merit 1 RC0579 337207 533065 357103 15 [facility] Medical BasixCompak (EU3772) SHEATH 6FR Terumo 1 RSR01 924440 19496 547559 5 Destination (RSR01) TORQUE [place] 1 TD01 611736 473802 082778 5 DEVICE Scientific PLASTIC .038 ( TD01) GLIDE WIRE Terumo 1 HD7343 275408 043281 913372 5 ANGLE 260cm (GI6381) DIAGNOSTIC Cardinal 1 [id number] 292989 665295 602317 10 UF 5Fr Health catheter (785614Z8) CHOICE PT [place] 1 [id number] 030102 581703 653286 5 Extra Scientific Support J 300cm guide wire ([id number]) SMART 6 X 60 Cardinal 1 [id number] 634967 414125 0 X 120 stent Health ([id number]) EXOSEAL 6Fr Cardinal 1 EX600 881001 620323 627843 10 (EX600) Health SABER 6.0 x Cardinal 1 [id number] 662944 386006 173748 5 6 x 150 Health balloon ([id number]) Signature Audit [place] Stage Time Signature Unsigned Intra-Procedure 05/26/2017 Katerina Marinelli 11:20:56 AM RT(R) Signatures Monitor : Katerina Marinelli Signature : RT Date : Time : [facility] [address] [place], [place] [address]
--- NOTE | ~2017-05-26 | OP ---
PATIENT NAME: GLADIS FLORES MEDICAL RECORD: [id number] :40 LOCATION:D.CAT ADMISSION DATE: SURGEON: VALORIE GRAY MD DATE OF OPERATION: 05/26/2017 PROCEDURES: 1. Stent placement, popliteal, left. 2. BUNDLE COLLECTOR, popliteal, left. 3. Unilateral extremity angiography. INDICATION: Claudication and peripheral vascular disease. PROCEDURE IN DETAIL: After informed consent was obtained and after detailed explanation of risks, benefits as well as alternative therapies, the patient elected to proceed with angiogram and angioplasty. The right femoral area was prepped and draped in normal sterile fashion. The right femoral artery was cannulated via modified Seldinger technique with placement of a 6-[place]ib[place] urmcwy-bpn-lqqj sheath. All catheters exchanged through this sheath. FINDINGS: The left distal SFA popliteal has 80% to 90% stenosis. This was addressed with a 6.0 balloon, yielding suboptimal result with severe intimal dissection. Stenting was undertaken with a 6 x 80 SMART stent. Result was 0% residual stenosis. OVERALL IMPRESSION: Successful percutaneous transluminal angioplasty stent of the left popliteal going from 80% to 90% initial stenosis to 0% residual. TRANSINT:[id number] Voice Confirmation ID: [id number] DOCUMENT ID: [id number] VALORIE GRAY MD at 1759 CC: [id number] DICTATION DATE: 05/26/17 1114 STUDENT COUNSELLOR: 05/26/17 1349 DEP CLI 05/26/17 [place] [id number]
--- NOTE | ~2017-05-26 | HP ---
PATIENT: GLADIS FLORES MEDICAL RECORD: [id number] ACCOUNT: [id number] LOCATION:[facility]ENS[facility] : 40 ADMISSION DATE: 05/26/17 HISTORY AND PHYSICAL EXAMINATION DIAGNOSES: 1. Claudication. 2. Peripheral vascular disease. 3. Coronary artery disease. 4. Hypertension. 5. Hyperlipidemia. 6. Smoking history. HISTORY: Mr. Flores presents with claudication symptomatology. He underwent aortofemoral runoff in conjunction with cardiac catheterization and coronary intervention, revealing critical disease of both SFA and popliteals. He is now brought back for staged intervention. REVIEW OF SYSTEMS: The patient reports easy bruising but reports no swollen glands. The patient reports no fever, no night sweats, no significant weight gain, no significant weight loss. No significant exercise tolerance. The patient reports no dry eyes, no irritation, no vision change. Patient reports no difficulty hearing and no ear pain. Patient reports no frequent nose bleeds or nose and sinus problems. Patient reports on arm pain on exertion. No shortness of breath while lying down. No history of heart murmur. Patient reports no cough, no wheezing or coughing up blood. Patient reports no abdominal pain, no vomiting. Normal appetite. No diarrhea and not vomiting blood. No nausea and no constipation. Patient reports no incontinence. No difficulty urinating. No hematuria. No increased frequency. Patient reports no muscle aches. No weakness, no arthralgias, no back pain. No swelling of the extremities. Patient reports no abnormal mole, no jaundice, no rashes. Reports no loss of consciousness. No weakness and no numbness. No seizures, dizziness, or headaches. The patient reports no depression, no sleep disturbance, feeling safe in a relationship and no alcohol abuse. Patient reports on fatigue. Reports no runny nose or sinus pressure. No itching, no hives, and no frequent sneezing. PHYSICAL EXAMINATION: GENERAL APPEARANCE: Well-nourished, well-developed, appears stated age. Level of distress, comfortable. PSYCHIATRIC: Mental status, alert, normal affect. Orientation, oriented to time, place and person. EYES: Lids and conjunctiva, noninjected. No discharge, no pallor. ENT: Lips, teeth, gums, normal dentition. Oropharynx, no cyanosis, no pallor. NECK: Carotid arteries, bilateral normal upstroke, no bruits, no thrills. JUGULAR VEINS: No jugular venous pressure or distention. CERVICAL LYMPH NODES: Nontender, nonenlarged. THYROID: Not enlarged. Nontender. No nodules. LUNGS: Respiratory effort, unlabored. CHEST: Normal curvature. No thoracic deformity. No chest wall tenderness. Percussion, resonant. Auscultation, clear. No wheezes, no rales, no rhonchi. CARDIOVASCULAR: Precordial exam, nondisplaced. No heaves or pericardial thrills. Rate and rhythm, regular. Heart sounds, normal S1, normal S2. No S3, no gallop, no rub. Systolic murmur, not heard. Diastolic murmur, not heard. EXTREMITIES: No cyanosis, no edema. Peripheral pulses, full and equal in all HISTORY AND PHYSICAL [id number] GLADIS FLORES extremities, except as noted. No bruits appreciated. ABDOMEN: Soft, nondistended. Normal aorta. No bruit. Nontender. No masses. Liver, nontender, no hepatomegaly. Spleen, nontender, no splenomegaly. MUSCULOSKELETAL: No joint tenderness. No joint swelling. No erythema. NEUROLOGICAL: Normal gait, normal strength, normal tone. SKIN: Warm and dry. OVERALL IMPRESSION: Leg pain compatible with claudication, severely lifestyle limiting, with known peripheral vascular disease. We will proceed with transcatheter revascularization. TRANSINT:[id number] Voice Confirmation ID: [id number] DOCUMENT ID: [id number] VALORIE GRAY MD at 1759 CC: [id number] DICTATION DATE: 05/26/17 1025 DYE RANGE TENDER: 05/26/17 1031 DEP CLI 05/26/17 [place] [id number] [place] [address]
[~2017-05-26 08:00] MED LIST: AMITRIPTYLINE H50 MG PO; BAYER CHEWABLE81 MG PO; CRANBERRY 400 M1 TA1 PO; FLOMAX0.4 MG PO; FUROSEMIDE20 MG PO; HUMALOG 30100 UNITS/ SC; LANTUS INSULIN10 ML SUBD; LIPITOR40 MG PO; NEURONTIN 400400 MG PO; OMEPRAZOLE20 M1 PO; PLAVIX75 MG PO; ULTRAM50 MG PO; VICTOZA0.6 MG/0.1 SQ; ZYLOPRIM100 MG PO
[2017-05-26 09:08] VITALS: BP 183/72; Ht 167.6 cm; Wt 90.9 kg
[2017-05-26 09:09] LABS: BASOPHILS 0.2 % (0-2); EOSINOPHILS 5.7 % (0-7); HEMATOCRIT 41.8 % (42.0-54.0); HEMOGLOBIN 13.8 g/dL (13.5-17.5); IMMATURE GRANULOCYTES 0.2 % (0-5); LYMPHOCYTES 20.8 % (15-50); MCH 31.7 pg (26.0-34.0); MCV 95.9 fL (80.0-100.0); MONOCYTES 8.1 % (2-11); PLATELET COUNT 203 10x3/uL (130-400); RBC 4.36 10x6/uL (4.20-6.10); RDW 14.2 % (11.5-14.5); WBC 10.6 10x3/uL (4.8-10.8)
[2017-05-26 09:17] LABS: ANION GAP 12.8 mmol/L (8-16); CALCIUM 8.3 mg/dL (8.5-10.1); CARBON DIOXIDE 29.5 mmol/L (21.0-32.0); CREATININE - SERUM 1.7 mg/dL (0.6-1.3); POTASSIUM - SERUM 4.3 mmol/L (3.5-5.1)
== END 2017-05-26 15:16 | disposition home or self-care (01) ==
LOC: D.CATH 08:00
PROVIDERS: Internal Medicine Interventional Cardiology
DX: I70.212 Atherosclerosis of native arteries of extremities with intermittent claudication, left leg (principal); Z87.891 Personal history of nicotine dependence; I25.10 Atherosclerotic heart disease of native coronary artery without angina pectoris; I10 Essential (primary) hypertension; E78.5 Hyperlipidemia, unspecified; Z01.812 Encounter for preprocedural laboratory examination

== ENCOUNTER 2017-06-02 08:45 | Outpatient (CLI) | payer MEDICARE ==
[~2017-06-02] VITALS: Ht 167.6 cm; Wt 90.9 kg
--- NOTE | ~2017-06-02 | HP ---
PATIENT: GLADIS FLORES MEDICAL RECORD: [id number] ACCOUNT: [id number] LOCATION:JENSEN : 40 ADMISSION DATE: 06/02/17 HISTORY AND PHYSICAL EXAMINATION DIAGNOSES: 1. Claudication. 2. Peripheral vascular disease. 3. Previous AGRICULTURAL ECONOMICS PROFESSOR and stent of the left leg with critical disease of the right leg. HISTORY: Mr. Flores presents with claudication symptomatology of both legs. He had critical disease in both legs. He underwent successful AGRICULTURAL ECONOMICS PROFESSOR and stent of the left leg, is now brought back for AGRICULTURAL ECONOMICS PROFESSOR and stent of the right leg. REVIEW OF SYSTEMS: The patient reports easy bruising but reports no swollen glands. The patient reports no fever, no night sweats, no significant weight gain, no significant weight loss. No significant exercise tolerance. The patient reports no dry eyes, no irritation, no vision change. Patient reports no difficulty hearing and no ear pain. Patient reports no frequent nose bleeds or nose and sinus problems. Patient reports on arm pain on exertion. No shortness of breath while lying down. No history of heart murmur. Patient reports no cough, no wheezing or coughing up blood. Patient reports no abdominal pain, no vomiting. Normal appetite. No diarrhea and not vomiting blood. No nausea and no constipation. Patient reports no incontinence. No difficulty urinating. No hematuria. No increased frequency. Patient reports no muscle aches. No weakness, no arthralgias, no back pain. No swelling of the extremities. Patient reports no abnormal mole, no jaundice, no rashes. Reports no loss of consciousness. No weakness and no numbness. No seizures, dizziness, or headaches. The patient reports no depression, no sleep disturbance, feeling safe in a relationship and no alcohol abuse. Patient reports on fatigue. Reports no runny nose or sinus pressure. No itching, no hives, and no frequent sneezing. PHYSICAL EXAMINATION: GENERAL APPEARANCE: Well-nourished, well-developed, appears stated age. Level of distress, comfortable. PSYCHIATRIC: Mental status, alert, normal affect. Orientation, oriented to time, place and person. EYES: Lids and conjunctiva, noninjected. No discharge, no pallor. ENT: Lips, teeth, gums, normal dentition. Oropharynx, no cyanosis, no pallor. NECK: Carotid arteries, bilateral normal upstroke, no bruits, no thrills. JUGULAR VEINS: No jugular venous pressure or distention. CERVICAL LYMPH NODES: Nontender, nonenlarged. THYROID: Not enlarged. Nontender. No nodules. LUNGS: Respiratory effort, unlabored. CHEST: Normal curvature. No thoracic deformity. No chest wall tenderness. Percussion, resonant. Auscultation, clear. No wheezes, no rales, no rhonchi. CARDIOVASCULAR: Precordial exam, nondisplaced. No heaves or pericardial thrills. Rate and rhythm, regular. Heart sounds, normal S1, normal S2. No S3, no gallop, no rub. Systolic murmur, not heard. Diastolic murmur, not heard. EXTREMITIES: No cyanosis, no edema. Peripheral pulses, full and equal in all extremities, except as noted. No bruits appreciated. ABDOMEN: Soft, nondistended. Normal aorta. No bruit. Nontender. No masses. Liver, nontender, no hepatomegaly. Spleen, nontender, no splenomegaly. HISTORY AND PHYSICAL [id number] GLADIS FLORES MUSCULOSKELETAL: No joint tenderness. No joint swelling. No erythema. NEUROLOGICAL: Normal gait, normal strength, normal tone. SKIN: Warm and dry. OVERALL IMPRESSION: Severe disease of the right leg. We will proceed with AGRICULTURAL ECONOMICS PROFESSOR and stent of the right leg. TRANSINT:[id number] Voice Confirmation ID: [id number] DOCUMENT ID: [id number] VALORIE GRAY MD CC: [id number] DICTATION DATE: 06/02/17 1047 VULNERABILITY ASSESSMENT ANALYST: 06/02/17 1123 [facility] [address] [place] [address]
--- NOTE | ~2017-06-02 | HEMODYNAMI ---
PATIENT:GLADIS FLORES MEDICAL RECORD: [id number] : 40 LOCATION:[facility] ADMISSION DATE: 06/02/17 Generatedon:06/04/20178:07 Patient name: GLADIS FLORES Patient #: [id number] SSN: : 1940 Date of study: 06/02/2017 Page: Of Hemodynamic Procedure Report Patient Data Patient Demographics Procedure consent was obtained First Name: GLADIS Gender: Male Last Name: SANDRA : 1940 [facility] Initial: G Age: 76 year(s) Patient #: [id number] Race: Unknown Additional ID: [id number] Contact details [address]: [address] [place] [address] State: [place] City: [place] Zip code: [address] Past Medical History Allergies: No known allergies Admission Admission Data Admission Date: 06/02/2017 Admission Time: 8:45 Lab Results Lab Result Date: 06/02/2017 Lab Result Time: 0:00 Biochemistry Name Units Result Min Max BUN mg/dl 25 --(----)-* 7 18 Creatinine mg/dl 1.8 --(----)-* 0.6 1.3 CBC Name Units Result Min Max Hemoglobin g/dl 13.8 --(*---)-- 13.5 17.5 Procedure Procedure Types Cath Procedure Miscellaneous Procedures Moderate Sedation up to 45 minutes Peripheral Cath Diagnostic Procedure Peripheral vascular Intervention Atherectomy Atherectomy Fem/Pop w/Stent/Plasty Procedure Description Procedure Date Procedure Date: 06/02/2017 Procedure Start Time: 11:03 Procedure End Time: 11:41 Procedure Staff Name Function Marilee Ramírez RT Monitor Gordon Willard MD Performing Physician Katerina Marinelli RT Scrub Lina Stark RN Nurse Krysten Brown RT Monitor Procedure Data Cath Procedure Fluoroscopy Diagnostic fluoroscopy Total fluoroscopy Time: time: 10.2 min 10.2 min Diagnostic fluoroscopy Total fluoroscopy dose: 453 dose: 453 mGy mGy Contrast Material Contrast Material Type Amount (ml) Isovue 300 85 Entry Location Entry Primary Successful Side Size Upsize Upsize Entry Closure Ro ccessful Closure Location (Fr) 1 (Fr) 2 (Fr) Remarks Device Remarks Femoral Left 6 Fr 6 Fr 6 Fr Manual artery Short Long Short Compression Estimated blood loss: 5 ml Diagnostic catheters Device Type Used For End Catheter Placement DIAGNOSTIC IMT 5Fr Multi-vessel Catheter ([id number]) Angiography Procedure Complications No complications Procedure Medications Medication Administration Route Dosage 0.9% NaCl I.V. 100 ml/hr Oxygen NC 2 l/min Lidocaine 2% added to field 20 Heparin Flush Bag added to field 2 bags (1000units/500ml NS) Fentanyl I.V. 50 mcg Versed I.V. 1 mg Versed I.V. 1 mg Fentanyl I.V. 50 mcg Heparin Bolus I.V. 4000 units Fentanyl I.V. 50 mcg Hemodynamics Rest HGB: 13.8 (g/dl) Heart Rate: 84 (bpm) Snapshots Pre Cath Intra NCS Post Cath Vital Signs Time Heart Resp SPO2 etCO2 NIBP (mmHg) Rhythm Pain Sedation Rate (ipm) (%) (mmHg) Status Level (bpm) 10:44:35 88 16 95 36.8 191/94(143) NSR 0 (11) 10(A) , No pain 10:49:02 81 15 98 41.4 179/92(136) NSR 0 (11) 10(A) , No pain 10:53:14 78 16 98 30.8 143/121(130) NSR 0 (11) 10(A) , No pain 10:58:25 80 16 100 42.9 154/81(133) NSR 0 (11) 9(A) , No pain 11:02:33 82 16 100 41.4 143/81(127) NSR 0 (11) 9(A) , No pain 11:06:49 83 14 100 0 156/86(124) NSR 0 (11) 10(A) , No pain 11:11:02 83 14 99 43.6 155/80(126) NSR 0 (11) 9(A) , No pain 11:15:25 84 14 99 45.9 153/71(116) NSR 0 (11) 9(A) , No pain 11:20:32 85 16 99 42.1 159/75(111) NSR 0 (11) 10(A) , No pain 11:24:46 88 14 97 41.4 141/67(116) NSR 0 (11) 9(A) , No pain 11:29:02 89 14 96 39.8 144/85(121) NSR 0 (11) 9(A) , No pain 11:33:16 92 15 99 37.6 162/93(138) NSR 0 (11) 10(A) , No pain 11:37:36 93 18 97 39.8 172/94(136) NSR 0 (11) 10(A) , No pain Medications Time Medication Route Dose Verified Delivered Reason Not es Effectiveness by by 10:38:36 0.9% NaCl I.V. 100ml/hr Gordon Mills used for Sudheer Stark RN procedure 10:38:43 Oxygen NC 2 l/min Gordon Mills Per physician Sudheer Stark RN 10:38:52 Lidocaine 2% added 20ml Gordon Gordon for local to vial Sudheer Willard MD anesthetic field 10:39:01 Heparin Flush added 2 bags Gordon Leyva used for Bag to Sudheer Willard MD procedure (1000units/500ml field NS) 10:53:08 Fentanyl I.V. 50 mcg Gordon Donaldfany for anxiety Sudheer Stark RN 10:53:20 Versed I.V. 1 mg Gordon Donaldfany for sedation Sudheer Stark RN 10:55:10 Versed I.V. 1 mg Gordon Donaldfany for sedation Sudheer Stark RN 10:55:18 Fentanyl I.V. 50 mcg Gordon Donaldfany for anxiety Sudheer Stark RN 10:55:19 Heparin Bolus I.V. 4000 Gordon Lina for mundo ified units Sudheer Stark RN anticoagulation by 11:07:00 Fentanyl I.V. 50 mcg Gordon Mills for anxiety mundo nadyaed Suhdeer Stark RN by Procedure Log Time Note 10:20:17 Katerina KAISER(R) sent for patient. Start room use. 10:33:31 Time tracking: Regular hours 10:33:35 Plan of Care:Hemodynamics will remain stable., Cardiac rhythm will remain stable., Comfort level will be maintained., Respiratory function will remain adequate., Patient/ family verbilizes understanding of procedure., Procedure tolerated without complication., Recovers from procedure without complications.. 10:38:36 0.9% NaCl 100ml/hr I.V. was administered by Lina Stark RN; used for procedure; 10:38:43 Oxygen 2 l/min NC was administered by Lina Stark RN; Per physician; 10:38:52 Lidocaine 2% 20ml vial added to field was administered by Gordon Willard MD; for local anesthetic; 10:39:01 Heparin Flush Bag (1000units/500ml NS) 2 bags added to field was administered by Gordon Willard MD; used for procedure; 10:39:26 Patient received from Pre/Post Procedure Room to CCL 2 Alert and oriented. Tansferred to table in Supine position. 10:39:27 Correct patient and procedure confirmed by team. 10:39:27 Warm blankets applied, and boone hugger turned on for patient comfort. 10:39:29 Signed procedure consent form obtained from patient. 10:39:30 ECG and BP/O2 sat monitors applied to patient. 10:43:21 Vital chart was started 10:45:46 Baseline sample Acquired. 10:45:50 Rhythm: sinus rhythm 10:45:51 Full Disclosure recording started 10:46:20 H&P Date Dictated: 06/02/2017 H&P Addendum completed by physician on day of procedure. (MUST COMPLETE FOR ALL OUTPATIENTS), New H&P dictated by physician.. 10:46:21 Pre-procedure instructions explained to patient. 10:46:22 Pre-op teaching completed and patient verbalized understanding. 10:46:24 Family in waiting room. 10:46:25 Patient NPO since Midnight. 10:46:32 Is the patient allergic to Iodine/contrast media? No. 10:46:36 Was the patient premedicated? No 10:46:38 Is patient on blood thinner?Yes 10:46:40 ACC The patient was administered the following blood thiners within the last 24 hours: ACCPlavix 10:46:43 Patient diabetic? Yes. 10:46:44 If diabetic: On Metformin? No 10:46:47 Previous problem with sedation/anesthesia? No ? 10:46:49 Snore? Yes 10:46:50 Sleep apnea? No 10:46:52 Opens mouth fully? Yes 10:46:52 Deviated septum? No 10:46:53 Sticks out tongue? Yes 10:46:57 Airway obstruction? No ? 10:46:59 Dentures? No ? 10:47:14 Pre procedure: right dorsailis pedis pulse 1+ Palpable, but thready & weak; easily obliterated 10:47:17 Pre procedure: left dorsailis pedis pulse 1+ Palpable, but thready & weak; easily obliterated 10:47:20 Patient pain scale 0/10 ?. 10:47:34 IV patent on arrival in left forearm with 0.9% NaCl at [facility]. 10:50:50 Lab Result : Hemoglobin 13.8 g/dl 10:50:50 Lab Result : Creatinine 1.8 mg/dl 10:50:50 Lab Result : BUN 25 mg/dl 10:50:54 Lab results completed and on chart. 10:50:59 Bilateral groins area was prepped with chlora-prep and draped in sterile fashion 10:51:00 Alarms reviewed by R. N. 10:51:01 Sharps counted by scrub and verified by R.N. 10:51:02 Physician arrived 10:51:03 Final Timeout: patient, procedure, and site verified with staff and physician. All members of the team are in agreement. 10:51:03 --------ALL STOP TIME OUT------ 10:51:06 Bilateral groins site verified by team. 10:51:09 Physical assessment completed. ASA score P 2 - A patient with mild systemic disease as per Gordon Willard MD. 10:51:13 Sedation plan: IV Moderate Sedation Medication:Versed, Fentanyl 10:51:47 Use device set Acist 10:51:49 ACIST Syringe (01590) opened to sterile field. 10:51:50 ACIST Hand Control (50081) opened to sterile field. 10:51:51 ACIST Manifold (10785) opened to sterile field. 10:52:32 GLIDE WIRE ANGLE 260cm (BS2333) opened to sterile field. 10:52:33 INFLATOR Merit BasixCompak (LM6333) opened to sterile field. 10:52:33 CHOICE PT Extra Support J 300cm guide wire ([id number]) opened to sterile field. 10:52:34 SHEATH 6FR Destination (RSR01) opened to sterile field. 10:52:35 SHEATH 6FR [place] (JBP751) opened to sterile field. 10:53:08 Fentanyl 50 mcg I.V. was administered by Lina Stark RN; for anxiety; 10:53:20 Versed 1 mg I.V. was administered by Lina Stark RN; for sedation; 10:55:10 Versed 1 mg I.V. was administered by Lina Stark RN; for sedation; 10:55:18 Fentanyl 50 mcg I.V. was administered by Lina Stark RN; for anxiety; 10:55:19 Heparin Bolus 4000 units I.V. was administered by Lina Stark RN; for anticoagulation; verified by 10:57:55 Zero performed for pressure channel P1 10:58:01 Zero performed for pressure channel P1 11:00:54 Procedure started. 11:03:47 Local anesthetic to left femerol artery with Lidocaine 2% by Gordon Willard MD.INITIAL ACCESS ONLY 11:03:59 A 6 Fr Short sheath was inserted into the Left Femoral artery 11:06:16 glide wire advanced. 11:07:00 Fentanyl 50 mcg I.V. was administered by Lina Stark RN; for anxiety; verified by 11:10:28 Sheath upsized to a 6 Fr Long. 11:10:32 A DIAGNOSTIC IMT 5Fr Catheter ([id number]) was advanced over the wire and used for Multi-vessel Angiography. 11:11:13 Catheter removed. 11:11:30 choice pt wire advanced. 11:11:35 Wire advanced across lesion. 11:15:12 Inflation number: 1 A MAVERICK 4.0 X 20 balloon ([id number]) was prepped and advanced across the Mid Superficial Femoral, Right, then inflated to 17 VAUGHN for 0:10 (min:sec). 11:18:12 A LASER Turbo-Power 2.0 atherectomy catheter ([id number]) was prepped and advanced across the Mid Superficial Femoral, Right1 lesion. Pass Number: 1 11:18:19 several lazer passes made to R. SFA 11:18:20 lazer pass to R SFA with fluence of 45 and Rate of 25 11:18:21 lazer pass to R SFA with fluence of 60 and rate of 25 11:20:30 Laser catheter removed. 11:23:16 Inflation number: 2 A POWERFLEX PRO 6.0 x 40 x 135cm balloon ([id number]) was prepped and advanced across the Mid Superficial Femoral, Right, then inflated to 7 VAUGHN for 0:10 (min:sec). 11:25:38 Balloon removed over the wire. 11:26:28 SMART 7 X 60 X 120 stent ([id number]) was deployed across Mid Superficial Femoral, Right . 11:26:49 Stent catheter was removed intact over wire. 11:26:59 Inflation number: 3 The POWERFLEX PRO 6.0 x 40 x 135cm balloon ([id number]) was reinflated across the Mid Superficial Femoral, Right, to 15 VAUGHN for 0:10 (min:sec). 11:27:27 Balloon removed over the wire. 11:27:54 Wire removed. 11:28:05 Sheath upsized to a 6 Fr Short. 11:28:57 Procedure ended.(Physican Out) 11:31:01 Sheath removed intact; hemostasis achieved with Manual Compression to the Left Femoral artery. 11:38:26 Fluoroscopy time 10.20 minutes. 11:38:35 Flurop Dose total: 453 11:38:35 Fluoroscopy dose: 453 mGy 11:38:41 Contrast amount:Isovue 300 85ml. 11:38:42 Sharps counted by scrub and verified by R.N. 11:38:52 Laser total pulses delivered: 2219 11:38:58 Laser total treatment time: 1 minutes 27 seconds 11:39:39 Femstop placed over the left femerol artery at 160 mmHg. Hemostasis achieved. 11:39:42 Post Procedure Pulses reassessed and unchanged 11:39:45 Post procedure rhythm: unchanged. 11:39:47 Estimated blood loss: 5 ml 11:39:49 Post procedure instruction explained to patient.Patient verbalizes understanding. 11:39:55 Patient needs reinforcement of post procedure teaching. 11:40:47 Procedure type changed to Cath procedure, Miscellaneous Procedures, Moderate Sedation up to 45 minutes, Peripheral Cath Diagnostic Procedure, Peripheral vascular Intervention, Atherectomy, Atherectomy Fem/Pop w/Stent/Plasty 11:40:50 Procedure and supply charges have been captured, reviewed, submitted and are correct. 11:40:53 Procedure Complication : No complications 11:40:55 Vital chart was stopped 11:40:55 See physician's report for complete and final results. 11:40:58 Report given to Pre/Post Procedure Room. 11:41:01 Patient transfered to Pre/Post Procedure Room with Stretcher. 11:41:07 Procedure ended. 11:41:07 Full Disclosure recording stopped 11:41:15 ACC-PCI Only Patient was given prescriptions, or instructed by Gordon Willard MD to start/continue the following medications upon discharge: Plavix 11:41:17 End room use (Document Last) Intervention Summary Intervention Notes Time ActionType Lesion and Equipment Action# Pressure Duration Attributes Used 11:15:12 Inflate Mid MAVERICK 4.0 1 17 00:10 balloon Superficial X 20 balloon Femoral, ([id number]) Right 11:18:12 Atherectomy Mid LASER 00:00 Superficial Turbo-Power Femoral, 2.0 Right1 atherectomy catheter ([id number]) 11:23:16 Inflate Mid POWERFLEX 2 7 00:10 balloon Superficial PRO 6.0 x 40 Femoral, x 135cm Right balloon ([id number]) 11:26:28 Deploy self Mid SMART 7 X 60 1 expanding Superficial X 120 stent stent Femoral, ([id number]) Right 11:26:59 Reinflate Mid POWERFLEX 3 15 00:10 balloon Superficial PRO 6.0 x 40 Femoral, x 135cm Right balloon ([id number]) Device Usage Item Name Manufacture Quantity Catalog Number [facility] Lot# / Charge Number Stock Stock Serial# Code ACIST Acist 1 20258 477920 260562 415609 20 Syringe Medical (68819) Systems Inc ACIST Hand Acist 1 52161 414559 594562 376853 5 Control Medical (68449) Systems Inc ACIST Acist 1 85347 320950 342524 245931 5 Manifold Medical (72172) Systems Inc GLIDE WIRE Terumo 1 MS3405 634338 503747 424768 5 ANGLE 260cm (JC9423) CHOICE PT [place] 1 [id number] 700188 020374 183620 5 Extra Scientific Support J 300cm guide wire ([id number]) INFLATOR Merit 1 QE7055 772709 750372 078216 15 Merit Medical BasixCompak (AO1574) SHEATH 6FR Terumo 1 RSR01 196285 85851 388809 5 Destination (RSR01) SHEATH 6FR Terumo 1 NBG538 510531 213114 448984 40 [place] (PMO546) DIAGNOSTIC [place]alla 1 [id number] 677696 463688 79271 5 IMT 5Fr Scientific Catheter ([id number]) MAVERICK 4.0 [place] 1 [id number] 689539 919200 716591 1 X 20 balloon Scientific ([id number]) POWERFLEX Cardinal 1 [id number] 136949 028297 360658 5 PRO 6.0 x 40 Health x 135cm balloon ([id number]) SMART 7 X 60 Cardinal 1 [id number] 230625 936496 0 [id number] X 120 stent Health ([id number]) LASER Prachi 1 420-561 490045 7115878 772290 5 Turbo-Norstel 2.0 (599929) atherectomy catheter (026847) Signature Audit Carey Stage Time Signature Unsigned Intra-Procedure 06/02/2017 Marilee Bashir Counts 11:51:17 AM RT(R) RT(R) 06/04/2017 8:04:32 AM Intra-Procedure 06/04/2017 Krysten 8:06:56 AM Counts RT(R) Signatures Monitor : Marilee Ramírez RT Signature : Date : Time : Monitor : Krysten Signature : Counts RT Date : Time : [facility] [address] [place], [place] [address]
--- NOTE | ~2017-06-02 | OP ---
PATIENT NAME: GLADIS FLORES MEDICAL RECORD: [id number] :40 LOCATION:D.CAT ADMISSION DATE: SURGEON: VALORIE GRAY MD DATE OF OPERATION: 06/02/2017 PROCEDURES: 1. Laser atherectomy SFA, right. 2. SECURITY GUARD SUPERVISOR SFA, right. 3. Stent placement SFA, right. 4. Unilateral extremity angiography. INDICATION: Claudication and peripheral vascular disease. PROCEDURE IN DETAIL: After informed consent was obtained and after a detailed explanation of the risks, benefits as well as alternative therapies, the patient elected to proceed with angiogram and angioplasty. The left femoral area was prepped and draped in normal sterile fashion. Left femoral artery was cannulated via modified Seldinger technique with placement of a 6-Luxembourgish glhchl-wqk-zsmr sheath. All catheters exchanged through this sheath. FINDINGS: The right SFA has 99% stenosis proximally. This was addressed with a 4.0 coronary balloon followed by a laser atherectomy with peripheral laser catheter. This was followed by repeat SECURITY GUARD SUPERVISOR with a 6.0 balloon. This yielded suboptimal result with severe intimal dissection. Stenting was undertaken with a 7 x 60 SMART stent. Result was 0% residual stenosis. OVERALL IMPRESSION: Successful percutaneous transluminal angioplasty stent, laser atherectomy of the right superficial femoral artery going from 99% initial stenosis to 0% residual. TRANSINT:[id number] Voice Confirmation ID: [id number] DOCUMENT ID: [id number] VALORIE GRAY MD CC: [id number] DICTATION DATE: 06/02/17 1136 SERVICE OPERATOR: 06/02/17 1305 [facility] [address] [place] [address]
[2017-06-02 08:53] VITALS: BP 196/83; Ht 167.6 cm; Wt 90.9 kg
[2017-06-02 09:11] LABS: BASOPHILS 0.4 % (0-2); EOSINOPHILS 8.3 % (0-7); HEMOGLOBIN 13.8 g/dL (13.5-17.5); IMMATURE GRANULOCYTES 0.3 % (0-5); LYMPHOCYTES 20.7 % (15-50); MCH 31.4 pg (26.0-34.0); MCHC 32.9 g/dL (31.0-37.0); MCV 95.7 fL (80.0-100.0); MEAN PLATELET VOLUME 10.4 fL (7.4-10.4); MONOCYTES 8.6 % (2-11); NEUTROPHILS 61.7 % (40-80); PLATELET COUNT 232 10x3/uL (130-400); RBC 4.39 10x6/uL (4.20-6.10); RDW 14.1 % (11.5-14.5)
[2017-06-02 09:25] LABS: CALCIUM 8.5 mg/dL (8.5-10.1); CARBON DIOXIDE 29.8 mmol/L (21.0-32.0); CREATININE - SERUM 1.8 mg/dL (0.6-1.3); POTASSIUM - SERUM 3.8 mmol/L (3.5-5.1)
== END 2017-06-02 18:26 | disposition home or self-care (01) ==
LOC: D.CATH 08:45
PROVIDERS: Internal Medicine Interventional Cardiology
DX: I70.211 Atherosclerosis of native arteries of extremities with intermittent claudication, right leg (principal); Z01.812 Encounter for preprocedural laboratory examination

== ENCOUNTER 2017-06-25 13:38 | Emergency (ER) | payer MEDICARE ==
[2017-06-02 08:53] VITALS: BMI 32.3
[2017-06-25 15:14] LABS: BASOPHILS 0.3 % (0-2); EOSINOPHILS 7.4 % (0-7); HEMATOCRIT 40.9 % (42.0-54.0); HEMOGLOBIN 13.5 g/dL (13.5-17.5); IMMATURE GRANULOCYTES 0.3 % (0-5); MCH 31.1 pg (26.0-34.0); MCV 94.2 fL (80.0-100.0); MEAN PLATELET VOLUME 10.4 fL (7.4-10.4); MONOCYTES 9.6 % (2-11); NEUTROPHILS 48.4 % (40-80); PLATELET COUNT 210 10x3/uL (130-400); RBC 4.34 10x6/uL (4.20-6.10); RDW 14.3 % (11.5-14.5); WBC 12.1 10x3/uL (4.8-10.8)
[2017-06-25 15:29] LABS: APTT 33.9 SECONDS (22.8-39.4); INR 1.04 (0.85-1.17); PROTIME 13.2 SECONDS (11.6-15.0)
[2017-06-25 15:38] LABS: ALBUMIN 3.2 g/dL (3.4-5.0); ANION GAP 11.2 mmol/L (8-16); BILIRUBIN - TOTAL 0.96 mg/dL (0.2-1.3); CALCIUM 8.5 mg/dL (8.5-10.1); CARBON DIOXIDE 28.5 mmol/L (21.0-32.0); CREATININE - SERUM 2.2 mg/dL (0.6-1.3); POTASSIUM - SERUM 3.7 mmol/L (3.5-5.1); PROTEIN - SERUM 7.4 g/dL (6.4-8.2)
== END 2017-06-25 17:45 | disposition left against medical advice (07) ==
LOC: D.ER 13:38
PROVIDERS: Emergency Medicine
DX: G45.9 Transient cerebral ischemic attack, unspecified (principal); E11.649 Type 2 diabetes mellitus with hypoglycemia without coma; Z79.4 Long term (current) use of insulin; I25.10 Atherosclerotic heart disease of native coronary artery without angina pectoris; I73.9 Peripheral vascular disease, unspecified; N18.9 Chronic kidney disease, unspecified